=== PATIENT | female | born 1945 | race Caucasian/White ===

== ENCOUNTER 2017-11-10 13:39 | Emergency (ER) | payer OTHER, MEDICARE | END 2017-11-10 14:48 | disposition home or self-care (01) | LOC: ER 13:39 | DX: S50.12XA Contusion of left forearm, initial encounter (principal); Z88.2 Allergy status to sulfonamides; Z88.0 Allergy status to penicillin; X58.XXXA Exposure to other specified factors, initial encounter; Y93.89 Activity, other specified; Y99.8 Other external cause status; Y92.89 Other specified places as the place of occurrence of the external cause | CPT/HCPCS: 73090; 99284 ==

== ENCOUNTER → 2020-05-06 | Outpatient (CLI) | payer MEDICARE ==
[2017-11-10 13:56] VITALS: BP 153/70
[~2020-05-06] MED LIST: IOHEXOL 240 MG/ML 50ML VIAL. PO ONE; IOHEXOL 300 MG/ML 100ML VIAL. IV ONE
--- NOTE | 2020-05-06 11:46 | KCIC ---
CT abdomen and pelvis with contrast History: Left upper quadrant pain for a couple of years Technique: After the administration of intravenous contrast, CT imaging was performed of the abdomen and pelvis. Oral contrast was also given. Multiplanar images are reviewed. Exposure: One or more of the following individualized dose reduction techniques were utilized for this examination: 1. Automated exposure control 2. Adjustment of the mA and/or kV according to patient size 3. Use of iterative reconstruction technique. Comparison: None Findings: There is some motion degradation. There may be a tiny 3 mm left lower lobe pulmonary nodule image 5 series 2 although motion this region limiting evaluation. There is no significant abnormality of the limited visualized lung bases. Gallbladder is present without obvious intraluminal abnormality by CT. No significant focal abnormality is identified of the pancreas, spleen, or liver. Both kidneys enhance without significant hydronephrosis, mild right renal pelviectasis. There is scattered plaque of the abdominal aorta and branches. The bowel is not significantly dilated. There is no free fluid or free air. There is no significant localized inflammatory type change about the bowel. Redundant sigmoid colon courses into the left upper quadrant of the abdomen. Appendix is not confidently identified if still present. There is multilevel lumbar facet degenerative change. There is lumbar degenerative disc disease greatest L4-5. There is likely at least mild narrowing of the lateral recesses probably greater on the left at L4-5 from posteriorly by facet. Impression: 1. No acute abnormality is identified. 2. There may be a tiny left lower lobe pulmonary nodule. If increased risk factors for neoplasm, optional 12 month follow-up could be performed as per Fleischner guidelines, otherwise no additional follow-up needed if low risk factors. Lungs are not fully evaluated on this exam. Electronically signed by: Rogelio Guy MD (05/06/2020 11:44 AM) [id number]
== END | disposition home or self-care (01) ==
LOC: KCIC CT 09:21
PROVIDERS: ATTEND Family Medicine
DX: R10.12 Left upper quadrant pain (principal); M47.816 Spondylosis without myelopathy or radiculopathy, lumbar region; M48.061 Spinal stenosis, lumbar region without neurogenic claudication
CPT/HCPCS: 74177; 82565; Q9966; Q9967